=== PATIENT | male | born 1965 | race Caucasian/White ===

== ENCOUNTER 2018-10-07 06:30 | Emergency (ER) | payer SELFPAY ==
[~2018-10-07] VITALS: Ht 177.8 cm; Wt 74.8 kg
[2018-10-07 06:38] VITALS: BP 115/64
== END 2018-10-07 07:31 | disposition home or self-care (01) ==
LOC: ER 06:33
DX: T14.8XXA Other injury of unspecified body region, initial encounter (principal); Z88.2 Allergy status to sulfonamides; Z88.1 Allergy status to other antibiotic agents; Z60.2 Problems related to living alone; W01.0XXA Fall on same level from slipping, tripping and stumbling without subsequent striking against object, initial encounter; W26.0XXA Contact with knife, initial encounter; Y93.E8 Activity, other personal hygiene; Y92.89 Other specified places as the place of occurrence of the external cause; Y99.8 Other external cause status